=== PATIENT | male | born 1975 | race Caucasian/White ===

== ENCOUNTER 2021-04-05 07:17 | Emergency (ER) | payer OTHER ==
[~2021-04-05] VITALS: Ht 182.9 cm; Wt 81.7 kg
[~2021-04-05 07:17] MED LIST: AMOX500 PO; Bactrim Ds Tab1 EACH PO; CEPH500 PO; CODACE30; CYCL10 PO; Cephalexin500 MG PO; HYDACE10B PO; HYDACE5 PO; HYDR1TAB94 PO; IBUP400; IBUP400 PO; Levaquin500 MG PO; NAPR500EC PO; OLAN2.5 PO; OXYACE5T PO; Percocet 10-321 EACH PO; Percocet 5-3251 EACH PO; TRAM50 PO; VICODIN 5-3001 EACH PO; Zofran4 MG PO
[2021-04-05] MEDS ORDERED: Crutch1 EACH XX (08:50)
[2021-04-05] MEDS ORDERED: HYDACE10B PO (08:50)
== END 2021-04-05 09:48 | disposition home or self-care (01) ==
LOC: ER 07:17
DX: S92.002A Unspecified fracture of left calcaneus, initial encounter for closed fracture (principal); W17.89XA Other fall from one level to another, initial encounter; Y93.39 Activity, other involving climbing, rappelling and jumping off
CPT/HCPCS: 29515; 73610; 73650; 96372-59; 99284-25; A9270; J3010

== ENCOUNTER 2021-04-17 13:18 | Day surgery (SDC) | payer OTHER ==
[~2021-04-17] VITALS: Ht 182.9 cm; Wt 82.7 kg
[~2021-04-17 13:18] MED LIST changes: +Crutch1 EACH XX
--- NOTE | 2021-04-17 14:24 | NUR ---
04/17/21 1424 Lakeisha RobinsCeleste POPLITEAL BLOCK CONDUCTED IN PRE-OP. 1418, TIME OUT & SITE CHECK PERFORMED. 2MG VERSED & 100MCG FENTANYL IV ADMINISTERED BY ANESTHESIOLOGIST. PULSE OX AND 6L/MIN VIA NON-REBREATHER ON PATIENT THROUGHOUT PROCEDURE. PT TOLERATED WELL, VSS. NO ISSUES, PT DENIES ANY DISCOMFORT.
--- NOTE | 2021-04-17 14:51 | NUR ---
04/17/21 1451 Vaishali Torres POPLITEAL BLOCK PLACED IN RUDDY OP WITHOUT DIFFICULTY.
== END 2021-04-17 16:25 | disposition home or self-care (01) ==
LOC: ORSCSDS 13:18
PROVIDERS: Podiatrist Foot & Ankle Surgery
PROC: 0QSM04Z Reposition Left Tarsal with Internal Fixation Device, Open Approach (ICD-10-PCS; principal; 2021-04-17 14:45)
DX: S92.012A Displaced fracture of body of left calcaneus, initial encounter for closed fracture (principal); F17.210 Nicotine dependence, cigarettes, uncomplicated
CPT/HCPCS: A9270; C1713; J0171; J0690; J1100; J2250; J2405; J2704; J3010; J7120

== ENCOUNTER 2021-12-04 12:07 | Day surgery (SDC) | payer OTHER ==
[~2021-12-04] VITALS: Ht 182.9 cm; Wt 83.0 kg
== END 2021-12-04 14:49 | disposition home or self-care (01) ==
LOC: ORSCSDS 12:07
PROVIDERS: Podiatrist Foot & Ankle Surgery
PROC: 0QPM04Z Removal of Internal Fixation Device from Left Tarsal, Open Approach (ICD-10-PCS; principal; 2021-12-04 12:30)
PROC: 0SGJ04Z Fusion of Left Tarsal Joint with Internal Fixation Device, Open Approach (ICD-10-PCS; principal; 2021-12-04 12:30)
DX: S92.012D Displaced fracture of body of left calcaneus, subsequent encounter for fracture with routine healing (principal); T84.84XA Pain due to internal orthopedic prosthetic devices, implants and grafts, initial encounter; F17.210 Nicotine dependence, cigarettes, uncomplicated; F31.9 Bipolar disorder, unspecified
CPT/HCPCS: C1713; C1734; J0171; J0690; J1100; J1885; J2250; J2405; J2704; J3010; J7120